=== PATIENT | female | born 1985 | race Caucasian/White ===

== ENCOUNTER 2018-07-26 15:20 | Emergency (ER) | payer OTHER ==
[~2018-07-26] VITALS: Ht 167.6 cm; Wt 61.2 kg
[~2018-07-26 15:20] MED LIST: FIORICET 50-321 EACH PO; NORCO 5-325 TA1 EACH PO; OMEPRAZOLE20 MG PO; ONDANSETRON HCL4 MG PO; PRENACARE TABL1 EACH PO; SUCRALFATE1 GM PO; ZANTAC 7575 MG PO
[2018-07-26] MEDS ORDERED: NYSTATIN100000 UN1 PO (15:31)
[2018-07-26] MEDS ORDERED: ARMOUR THYROID15 MG PO (15:31)
== END 2018-07-26 19:49 | disposition home or self-care (01) ==
LOC: ED 15:20
DX: R10.31 Right lower quadrant pain (principal); I10 Essential (primary) hypertension; F17.200 Nicotine dependence, unspecified, uncomplicated; Z88.2 Allergy status to sulfonamides; Z91.040 Latex allergy status; Z79.899 Other long term (current) drug therapy
CPT/HCPCS: 74177; 76830; 76856; 80053; 81001; 83690; 84703; 85025; 99284-25; 99406

== ENCOUNTER 2021-12-13 08:27 | Emergency (ER) | payer OTHER ==
[~2021-12-13] VITALS: Ht 167.6 cm; Wt 85.3 kg
[~2021-12-13 08:27] MED LIST changes: +ARMOUR THYROID15 MG PO; +NYSTATIN100000 UN1 PO
[2021-12-13] MEDS ORDERED: NAPROXEN500 MG PO (08:53)
[2021-12-13] MEDS ORDERED: CYCLOBENZAPRINE10 MG PO (08:53)
[2021-12-13] MEDS ORDERED: BUPROPION HCL150 MG PO (08:54)
== END 2021-12-13 10:39 | disposition home or self-care (01) ==
LOC: ED 08:27
DX: R11.10 Vomiting, unspecified (principal); F12.90 Cannabis use, unspecified, uncomplicated; R19.7 Diarrhea, unspecified; Z20.822 Contact with and (suspected) exposure to COVID-19; I10 Essential (primary) hypertension; F17.200 Nicotine dependence, unspecified, uncomplicated; Z88.2 Allergy status to sulfonamides; Z91.040 Latex allergy status; Z79.899 Other long term (current) drug therapy
CPT/HCPCS: 36415; 80053; 81001; 83690; 84703; 85025; 96361; 96374; 96375; 99284-25; C9803; J1630; J1885; J7030; U0003